=== PATIENT | female | born 1970 | race Caucasian/White ===

== ENCOUNTER 2021-09-23 14:34 | Outpatient (CLI) | payer BC, MEDICAID, SELFPAY ==
--- NOTE | 2021-09-23 14:52 | PFTS_ITS ---
Date of Study:09/23/21 Date of Dictation: 09/28/21 MECHANICS: Postbronchodilator forced vital capacity (FVC) is normalized 93% after bronchodilation. Pre-BD FVC 40% Postbronchodilator forced expiratory volume in one second (FEV1) is normalized 87% after bronchodilation. Pre-BD FEV1 26% FEV1/FVC is 74 improved significantly after bronchodilation. Pre-BD FEV1 FEC 53. There is tremendous response to bronchodilators FLOW VOLUME LOOP: Sloping of expiratory limb suggestive of airway obstruction significantly improved after bronchodilators . LUNG VOLUMES: Total lung capacity (TLC) is normal. Residual volume (RV) is normal DIFFUSING CAPACITY FOR CARBON MONOXIDE: Normal . INTERPRETATION: The prebronchodilator spirometry suggestive of very severe obstruction with FEV1 830 mL which has significantly improved to 2.71 L postbronchodilator. All the postbronchodilator values and flow volume loop show tremendous increase after bronchodilators. Lung volumes are normal. Gas transfer is normal. Constellation of findings consistent with reversible obstructive lung disease such as asthma. However clinical correlation recommended. [facility]
== END 2021-09-23 14:35 | disposition home or self-care (01) ==
LOC: RT 14:34
PROVIDERS: PCP Nurse Practitioner Family; Visit Provider Internal Medicine Pulmonary Disease
DX: U09.9 Post COVID-19 condition, unspecified (principal)
CPT/HCPCS: 94060; 94618; 94726; 94729; J7611

== ENCOUNTER 2021-10-05 14:44 | Emergency (ER) | payer BC, MEDICAID, SELFPAY ==
[2021-10-05 14:46] VITALS: BP 174/78; PULSE 136; RESP 26; TEMP 36.5; O2SAT 96; BMI 30.4
--- NOTE | 2021-10-05 15:48 | XR_ITS ---
WS: [id number] XR chest 1V portable [id number] REASON FOR EXAM: cp FINDINGS: Moderate tortuosity the thoracic aorta without aneurysmal dilatation. No significant cardiomegaly. Calcified granulomatous changes in both hemithoraces. No acute pulmonary parenchymal or pleural abnormality. Mild changes of degenerative spondylosis in the mid and lower thoracic spine. Degenerative change in the right acromioclavicular joint. XR/XR chest 1V portable [id number] IMPRESSION: No acute chest abnormality.
--- NOTE | 2021-10-05 15:49 | ECG_ITS ---
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 Measurements Intervals [place] Rate: 124 P: 50 DC: 151 QRS: 55 QRSD: 89 T: 53 QT: 290 QTc: 417 Interpretive Statements SINUS TACHYCARDIA No previous ECG available for comparison Electronically Signed On 10-05-2021 17:08:05 METAL CLEANER by Duy Hannah M.D. [id number]
--- NOTE | 2021-10-05 16:15 | W.ED.CHESTPA ---
Documented by User: MELISSA Menezes 10/06/21 07:06 HPI - Chest Pain General: Chief Complaint: Chest Pain Stated Complaint: SOB, CHEST PAINS Time Seen by Provider: 10/05/21 15:55 History of Present Illness: Patient is a 50-year-old female comes to the ED with palpitations and chest pain. Patient says she got up to walk to her vehicle and symptoms started. She felt palpitations and her heart was racing. She then felt some chest tightness and chest pain. She is scheduled to see a survey analyst in the next couple months and she just finished wearing her Holter monitor and sent it back in for evaluation. She says she had some episodes of palpitation over the last couple weeks. She never experienced palpitations and chest pain like this before. She endorsed feeling a little short of breath, nauseous and diaphoretic. Patient endorses having a history of anxiety but feels like this is different than past episodes. Here in the ED, chest pain is very mild right now and feels more like a tightness in her chest. Denies feeling any palpitations or shortness of breath currently. She got COVID-19 back in January and ever since then she has been having these palpitation episodes. Associated symptoms: Reports diaphoresis (during CP and palpitations episode.), dyspnea and palpitations; Deny abdominal pain, fever(s), nausea or vomiting Review of Systems Const: Reports: diaphoresis (during CP and palpitations episode.); Denies: fever(s), chills or fatigue Eyes: Denies: change in vision or eye discomfort ENMT: Denies: throat pain, odynophagia, nasal discharge or nasal congestion Card: Reports: chest pain and palpitations; Denies: edema, swelling of feet/ankles, dyspnea on exertion or orthopnea Resp: Reports: dyspnea; Denies: productive cough, non-productive cough or hemoptysis GI: Denies: abdominal pain, nausea, vomiting, diarrhea, constipation or hematochezia : Denies: flank pain, dysuria or hematuria Musc: Denies: neck pain, back pain or extremity swelling Skin/Breast: Denies: rash or new lesions Neuro: Denies: headache(s), numbness in extremities or weakness in extremities PFS ED PFSH: Medical History Hypertension Family History Father CAD (coronary artery disease) Cancer Hypertension Mother Cancer Lung disease Denies family history of Diabetes Dementia Chronic kidney disease (CKD) Suicide Family history of premature coronary artery disease Stroke Social History Smoking and tobacco status: never smoked Alcohol intake: never Lives independently: Yes Household members: none Housing: House Marital status: Unknown Number of children: 1 Current occupational status: employed Current occupation: [employer] Pets and animals: Yes Pets & animals: cat(s) Physical Exam Const: COMMON NORMALS: patient oriented x3 and alert GENERAL APPEARANCE: cooperative and comfortable HENMT: COMMON NORMALS: normocephalic HEAD & SCALP: normocephalic MOUTH: Normal oral and palatal mucosa present THROAT: posterior oropharynx normal and uvula midline Eye: COMMON NORMALS: Equal, round and reactive pupils present and conjunctivae normal CONJUNCTIVA: Yes conjunctivae normal PUPIL: Yes Equal, round and reactive pupils present Neck/C-Spine: COMMON NORMALS: supple GENERAL: Yes normal visual inspection Resp: COMMON NORMALS: normal respiratory effort, No retractions, No use of accessory muscles and clear to auscultation bilaterally AUSCULTATION: clear to auscultation bilaterally Cardio: COMMON NORMALS: regular rate, regular rhythm, S1 normal heart sound present, S2 normal heart sound present, No gallops present (Cardio), No clicks present (Cardio), No murmurs present (Cardio) and Peripheral pulses 2+ throughout RATE: regular rate RHYTHM: regular rhythm HEART SOUNDS: S1 normal heart sound present and S2 normal heart sound present PERIPHERAL PULSES: Peripheral pulses 2+ throughout GI: COMMON NORMALS: Normal to inspection, nondistended, normoactive bowel sounds present, Soft to palpation, non-tender and no masses PALPATION: Yes Soft to palpation : COMMON NORMALS: Yes no CVA tenderness BLADDER/KIDNEY EXAM: Yes no CVA tenderness Back/Pelvis: COMMON NORMALS: no CVA tenderness Extremity: COMMON NORMALS: normal to inspection Neuro: COMMON NORMALS: patient oriented x3 and moves all extremities SENSORIUM/ORIENTATION: Yes alert Skin: GENERAL SKIN EXAM: dry skin Course Vital Signs: Vital signs: Vital Signs Temperature 97.7 F 10/05/21 14:46 Pulse Rate 100 10/05/21 20:49 Respiratory Rate 18 10/05/21 20:49 Blood Pressure 164/107 10/05/21 17:50 Pulse Oximetry 98 10/05/21 20:49 MDM - Chest Pain Lab Data I reviewed the patient's lab results. : 10/05/21 16:14 10/05/21 19:18 Radiology Impressions Chest X-Ray 10/05/21 15:48 IMPRESSION: No acute chest abnormality. Laboratory Results WBC 11.5 10^3/uL (4.0-10.0) H 10/05/21 16:14 RBC 4.76 10^6/uL (4.1-5.3) 10/05/21 16:14 Hgb 15.2 g/dL (11.5-15.3) 10/05/21 16:14 Hct 44.3 % (37.0-47.0) 10/05/21 16:14 MCV 93.1 fl (81-99) 10/05/21 16:14 MCH 31.9 pg (28.0-34.0) 10/05/21 16:14 MCHC 34.3 g/dL (30.0-36.0) 10/05/21 16:14 RDW 12.9 % (12.1-15.1) 10/05/21 16:14 Plt Count 377 10^3/cmm (130-400) 10/05/21 16:14 MPV 9.3 fL (7.4-10.4) 10/05/21 16:14 Neut % (Auto) 72.6 % 10/05/21 16:14 Lymph % (Auto) 20.8 % 10/05/21 16:14 Bea[place] % (Auto) 5.3 % 10/05/21 16:14 Eos % (Auto) 0.3 % 10/05/21 16:14 Baso % (Auto) 0.7 % 10/05/21 16:14 Neut # (Auto) 8.32 10^3/uL (1.8-7.7) H 10/05/21 16:14 Lymph # (Auto) 2.4 10^3/uL (0.8-4.8) 10/05/21 16:14 [place] # (Auto) 0.6 10^3/uL (0.2-0.9) 10/05/21 16:14 Eos # (Auto) 0.0 10^3/uL (0.0-0.8) 10/05/21 16:14 Baso # (Auto) 0.1 10^3/uL (0.0-0.1) 10/05/21 16:14 Nucleated RBC % (auto) 0 % 10/05/21 16:14 Nucleated RBCs # 0.0 /100WBC 10/05/21 16:14 D-Dimer 0.52 ug/mIFEU (0-0.59) 10/05/21 17:15 Sodium 137 mmol/L (136-145) 10/05/21 19:18 Potassium 4.3 mmol/L (3.5-5.1) 10/05/21 19:18 Chloride 99 mmol/L (98-107) 10/05/21 19:18 Carbon Dioxide 21 mmol/L (22-29) L 10/05/21 19:18 Anion Gap 21.3 (5-19) H 10/05/21 19:18 BUN 13 mg/dL (6-20) 10/05/21 19:18 Creatinine 0.8 mg/dL (0.5-0.9) 10/05/21 19:18 GFR Calculation 75.6 mL/min (90-130) L 10/05/21 19:18 Glucose 95 mg/dL (65-115) 10/05/21 19:18 Calculated Osmolality 284 mOsm/kg (285-295) L 10/05/21 19:18 Calcium 10.0 mg/dL (8.5-10.5) 10/05/21 19:18 Total Bilirubin 0.4 mg/dL (0.15-1.2) 10/05/21 19:18 AST 28 U/L (0-32) 10/05/21 19:18 ALT 25 U/L (0-33) 10/05/21 19:18 Alkaline Phosphatase 56 IU/L (35-105) 10/05/21 19:18 Troponin T Baseline 17 ng/L (0-10) H 10/05/21 19:18 NT-Pro-B Natriuret Pep 38 pg/mL (0-125) 10/05/21 19:18 Total Protein 7.8 g/dL (6.6-8.7) 10/05/21 19:18 Albumin 4.7 g/dL (3.5-5.2) 10/05/21 19:18 Globulin 3.1 g/dL (1.3-4.6) 10/05/21 19:18 EKG Data EKG 1: EKG interpretation date: 10/05/21 Interpretation: Sinus tachycardia, 124 bpm, no ST segment elevation or depression seen. Computer generated interpretation: [facility] [place] [address] [place] [address] Electrocardiograph Report Draft Patient: Dipti Fernandes Unit #: [id number] : 1970 Age/Sex: 50 / F ADM Date: 10/05/21 Loc: ER Room/Bed: Attending Dr: Ordering Provider/Ordering MD: Dax Durant Date of Service: 10/05/21 Procedure(s): ECG 12 lead EKG Accession Number(s): [id number] Report Number: [id number] ? [facility] ? Test Date:? ? 2021-10-05 Pat Name: ? ? Dipti Fernandes? Department: ? Patient ID: ? [id number] ? Room: ? Gender: ? ? ? Female ? Bench Scientist: ? :? 1970 ? Requested By: Dax Durant Order Number: [id number]? Reading MD: ? Measurements Intervals? [place]? Rate: ? 124? P:? 50 [place]: ? 151? QRS:? 55 QRSD: ? 89 ? T:? 53 QT: ? 290? QTc:? 417? Interpretive Statements SINUS TACHYCARDIA ABNORMAL RHYTHM ECG No previous ECG available for comparison [id number] Dictated By: INTERFACE,USER Signed By: Signed Date/Levar DD/ 1454 Discharge Plan Discharge Patient Disposition: Home Clinical Impression: Exertional dyspnea, Post covid-19 condition, unspecified Condition: Stable Prescriptions: No Action metoprolol succinate 25 mg tablet extended release 24 hr PO 0RF venlafaxine 150 mg tablet extended release 24hr 150 mg PO DAILY 0RF prednisolone 5 mg tablet 5 mg PO QAM 0RF prazosin 2 mg capsule 2 mg PO BID 0RF albuterol sulfate 90 mcg/actuation HFA aerosol inhaler 2 puff inhalation Q4H PRN0RF albuterol sulfate 2.5 mg /3 mL (0.083 %) solution for nebulization 2.5 mg inhalation TID 0RF budesonide-formoterol [Symbicort] 160-4.5 mcg/actuation HFA aerosol inhaler 2 puff inhalation BID Qty: 10.2 3RF lisinopril 5 mg tablet 10 mg PO DAILY 0RF Discharge Orders: Discharge ED (Routine); Ordered 10/05/21 Ordered By: Nena Cisneros Referrals: Saritha Denis [Primary Care Provider] - Sign Out Sign Out Data: Patient Sign Out occurred on 10/05/21 at 17:11. Patient's care was discussed, and care was transferred from to MELISSA Pfeiffer. Coding Level of Care Code ED Clinical Education Coordinator for Chg Fwd Exam Comprehensive Documented by User: MELISSA Pfeiffer 10/05/21 21:25 HPI - Chest Pain General: Chief Complaint: Chest Pain Stated Complaint: SOB, CHEST PAINS Time Seen by Provider: 10/05/21 15:55 PFSH ED PFSH: Medical History Hypertension Family History Father CAD (coronary artery disease) Cancer Hypertension Mother Cancer Lung disease Denies family history of Diabetes Dementia Chronic kidney disease (CKD) Suicide Family history of premature coronary artery disease Stroke Social History Smoking and tobacco status: never smoked Alcohol intake: never Lives independently: Yes Household members: none Housing: House Marital status: Unknown Number of children: 1 Current occupational status: employed Current occupation: [employer] Pets and animals: Yes Pets & animals: cat(s) Course Vital Signs: Vital signs: Vital Signs Temperature 97.7 F 10/05/21 14:46 Pulse Rate 100 10/05/21 20:49 Respiratory Rate 18 10/05/21 20:49 Blood Pressure 164/107 10/05/21 17:50 Pulse Oximetry 98 10/05/21 20:49 MDM - Chest Pain Medical Decision Making Care assumed from Dax Durant PA-C. Patient is a very nice 50-year-old female here for complaints of chest pains, tachycardia, and severe exertional dyspnea. Patient states symptoms of been present since January following a COVID infection. Patient has followed up with pulmonology and was recently had PFT studies performed. She is recently finished a Holter monitor course but does not know results of this. She has follow-up with survey analyst Dr. Mireles in approximately 2 weeks. Patient was tachycardic upon arrival but this is resolved during my examination. She does not currently complain of chest pain. Work-up ordered from previous provider shows labs are fairly unremarkable. Her CXR is normal. She has a normal D-dimer. She has a normal BNP. Her initial baseline troponin unfortunately was not ran by lab and when RN collected her 2-hour troponin they then ran this as her baseline. It is mildly elevated at 17. Patient states she is tired of waiting and does not want to stay for repeat 2-hour troponin. Her baseline and repeat EKGs show no ischemic changes. Again she does not have any current chest pain. Most of her symptoms seem to be chronic and she has appropriate outpatient follow-up. Strict return to ED precautions verbally given to patient and her who agree with current plan. Lab Data : 10/05/21 16:14 10/05/21 19:18 Radiology Impressions Chest X-Ray 10/05/21 15:48 IMPRESSION: No acute chest abnormality. Laboratory Results WBC 11.5 10^3/uL (4.0-10.0) H 10/05/21 16:14 RBC 4.76 10^6/uL (4.1-5.3) 10/05/21 16:14 Hgb 15.2 g/dL (11.5-15.3) 10/05/21 16:14 Hct 44.3 % (37.0-47.0) 10/05/21 16:14 MCV 93.1 fl (81-99) 10/05/21 16:14 MCH 31.9 pg (28.0-34.0) 10/05/21 16:14 MCHC 34.3 g/dL (30.0-36.0) 10/05/21 16:14 RDW 12.9 % (12.1-15.1) 10/05/21 16:14 Plt Count 377 10^3/cmm (130-400) 10/05/21 16:14 MPV 9.3 fL (7.4-10.4) 10/05/21 16:14 Neut % (Auto) 72.6 % 10/05/21 16:14 Lymph % (Auto) 20.8 % 10/05/21 16:14 Bea[place] % (Auto) 5.3 % 10/05/21 16:14 Eos % (Auto) 0.3 % 10/05/21 16:14 Baso % (Auto) 0.7 % 10/05/21 16:14 Neut # (Auto) 8.32 10^3/uL (1.8-7.7) H 10/05/21 16:14 Lymph # (Auto) 2.4 10^3/uL (0.8-4.8) 10/05/21 16:14 [place] # (Auto) 0.6 10^3/uL (0.2-0.9) 10/05/21 16:14 Eos # (Auto) 0.0 10^3/uL (0.0-0.8) 10/05/21 16:14 Baso # (Auto) 0.1 10^3/uL (0.0-0.1) 10/05/21 16:14 Nucleated RBC % (auto) 0 % 10/05/21 16:14 Nucleated RBCs # 0.0 /100WBC 10/05/21 16:14 D-Dimer 0.52 ug/mIFEU (0-0.59) 10/05/21 17:15 Sodium 137 mmol/L (136-145) 10/05/21 19:18 Potassium 4.3 mmol/L (3.5-5.1) 10/05/21 19:18 Chloride 99 mmol/L (98-107) 10/05/21 19:18 Carbon Dioxide 21 mmol/L (22-29) L 10/05/21 19:18 Anion Gap 21.3 (5-19) H 10/05/21 19:18 BUN 13 mg/dL (6-20) 10/05/21 19:18 Creatinine 0.8 mg/dL (0.5-0.9) 10/05/21 19:18 GFR Calculation 75.6 mL/min (90-130) L 10/05/21 19:18 Glucose 95 mg/dL (65-115) 10/05/21 19:18 Calculated Osmolality 284 mOsm/kg (285-295) L 10/05/21 19:18 Calcium 10.0 mg/dL (8.5-10.5) 10/05/21 19:18 Total Bilirubin 0.4 mg/dL (0.15-1.2) 10/05/21 19:18 AST 28 U/L (0-32) 10/05/21 19:18 ALT 25 U/L (0-33) 10/05/21 19:18 Alkaline Phosphatase 56 IU/L (35-105) 10/05/21 19:18 Troponin T Baseline 17 ng/L (0-10) H 10/05/21 19:18 NT-Pro-B Natriuret Pep 38 pg/mL (0-125) 10/05/21 19:18 Total Protein 7.8 g/dL (6.6-8.7) 10/05/21 19:18 Albumin 4.7 g/dL (3.5-5.2) 10/05/21 19:18 Globulin 3.1 g/dL (1.3-4.6) 10/05/21 19:18 Discharge Plan Discharge Patient Disposition: Home Clinical Impression: Exertional dyspnea, Post covid-19 condition, unspecified Condition: Stable Prescriptions: No Action metoprolol succinate 25 mg tablet extended release 24 hr PO 0RF venlafaxine 150 mg tablet extended release 24hr 150 mg PO DAILY 0RF prednisolone 5 mg tablet 5 mg PO QAM 0RF prazosin 2 mg capsule 2 mg PO BID 0RF albuterol sulfate 90 mcg/actuation HFA aerosol inhaler 2 puff inhalation Q4H PRN0RF albuterol sulfate 2.5 mg /3 mL (0.083 %) solution for nebulization 2.5 mg inhalation TID 0RF budesonide-formoterol [Symbicort] 160-4.5 mcg/actuation HFA aerosol inhaler 2 puff inhalation BID Qty: 10.2 3RF lisinopril 5 mg tablet 10 mg PO DAILY 0RF Discharge Orders: Discharge ED (Routine); Ordered 10/05/21 Ordered By: Nena Cisneros Referrals: Saritha Denis [Primary Care Provider] - Sign Out Sign Out Data: Patient Sign Out occurred on 10/05/21 at 17:11. Patient's care was discussed, and care was transferred from to MELISSA Pfeiffer. Coding Level of Care Code ED Clinical Education Coordinator for Chg Fwd Exam Comprehensive
[2021-10-05 16:19] LABS: Basophils # 0.1 10^3/uL (0.0-0.1); Basophils % 0.7 %; Eosinophils % 0.3 %; Hematocrit 44.3 % (37.0-47.0); Hemoglobin 15.2 g/dL (11.5-15.3); Lymphocytes # 2.4 10^3/uL (0.8-4.8); Lymphocytes % 20.8 %; Mean Corpuscular HGB Conc 34.3 g/dL (30.0-36.0); Mean Corpuscular Hemoglobin 31.9 pg (28.0-34.0); Mean Corpuscular Volume 93.1 fl (81-99); Mean Platelet Volume 9.3 fL (7.4-10.4); Monocytes # 0.6 10^3/uL (0.2-0.9); Monocytes % 5.3 %; Neutrophils # 8.32 10^3/uL (1.8-7.7); Neutrophils % 72.6 %; Nucleated Red Blood Cells % 0 %; Platelet Count 377 10^3/cmm (130-400); Red Blood Count 4.76 10^6/uL (4.1-5.3); Red Cell Distribution Width 12.9 % (12.1-15.1); White Blood Count 11.5 10^3/uL (4.0-10.0)
[2021-10-05 17:35] LABS: D Dimer 0.52 ug/mIFEU (0-0.59)
[2021-10-05 17:44] LABS: Troponin(5th) Baseline 17 ng/L (0-10)
--- NOTE | 2021-10-05 17:49 | ECG_ITS ---
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 Measurements Intervals [place] Rate: 93 P: 46 DE: 147 QRS: 53 QRSD: 106 T: 49 QT: 338 QTc: 420 Interpretive Statements SINUS RHYTHM Compared to ECG 10/05/2021 14:54:15 Sinus tachycardia no longer present Electronically Signed On 10-05-2021 20:55:17 NATIONAL SALES TRAINER by Duy Hannah M.D. [email or web address] hardin [id number]
[2021-10-05 17:50] VITALS: BP 164/107; PULSE 104; RESP 16; O2SAT 99
[2021-10-05] MEDS: aspirin 81 mg Chew Tablet 324 MG PO (18:54)
[2021-10-05] MEDS: acetaminophen 500 mg Tablet 1000 MG PO (19:17)
[2021-10-05 20:27] LABS: Alanine Aminotransferase 25 U/L (0-33); Albumin Level 4.7 g/dL (3.5-5.2); Alkaline Phosphatase 56 IU/L (35-105); Anion Gap 21.3 (5-19); Aspartate Amino Transferase 28 U/L (0-32); Blood Urea Nitrogen 13 mg/dL (6-20); Carbon Dioxide 21 mmol/L (22-29); Chloride 99 mmol/L (98-107); Globulin 3.1 g/dL (1.3-4.6); Glomerular Filtration Rate 75.6 mL/min (90-130); Glucose 95 mg/dL (65-115); NT Pro B Type Natriuretic Pept 38 pg/mL (0-125); Osmolality Calculated 284 mOsm/kg (285-295); Potassium 4.3 mmol/L (3.5-5.1); Sodium 137 mmol/L (136-145); Total Bilirubin 0.4 mg/dL (0.15-1.2); Total Protein 7.8 g/dL (6.6-8.7)
[2021-10-05 20:48] VITALS: PULSE 100; RESP 18; O2SAT 98
[2021-10-05 20:49] VITALS: PULSE 100; RESP 18; O2SAT 98
== END 2021-10-05 20:51 | disposition home or self-care (01) ==
PROVIDERS: Physician Assistant; Emergency Provider Physician Assistant; PCP Nurse Practitioner Family
DX: R06.09 Other forms of dyspnea (principal); U09.9 Post COVID-19 condition, unspecified; I10 Essential (primary) hypertension
CPT/HCPCS: 71045; 80053; 83880; 84484; 85025; 85378; 93005; 99283

== ENCOUNTER 2021-11-02 20:00 | Outpatient (CLI) | payer BC, MEDICAID, SELFPAY | END 2021-11-02 20:01 | disposition home or self-care (01) | LOC: SLEEP 11-03 07:45 | PROVIDERS: PCP Nurse Practitioner Family; Visit Provider Internal Medicine Pulmonary Disease | DX: G47.10 Hypersomnia, unspecified (principal); G47.33 Obstructive sleep apnea (adult) (pediatric) | CPT/HCPCS: 95810 ==

== ENCOUNTER → 2021-11-19 10:50 | Outpatient (BNVA) | payer BC, MEDICAID, SELFPAY | PROVIDERS: PCP Nurse Practitioner Family; Visit Provider Internal Medicine Pulmonary Disease | DX: R22.43 Localized swelling, mass and lump, lower limb, bilateral (principal); R06.00 Dyspnea, unspecified; Z77.120 Contact with and (suspected) exposure to mold (toxic); U09.9 Post COVID-19 condition, unspecified; R06.02 Shortness of breath; G47.33 Obstructive sleep apnea (adult) (pediatric); R00.0 Tachycardia, unspecified | CPT/HCPCS: 36415; 82785; 83880; 85025; 85651; 86003; 86331; 86606; 86609 ==

== ENCOUNTER 2022-03-14 23:53 | Emergency (ER) | payer MEDICAID, SELFPAY ==
[2022-03-14 23:54] VITALS: BMI 25.8
[2022-03-14 23:57] VITALS: BP 160/105; PULSE 99; RESP 22; TEMP 39.5; O2SAT 97
--- NOTE | 2022-03-15 00:10 | XRR_ITS ---
PROCEDURE INFORMATION: Exam: XR Chest Exam date and time: 03/15/2022 12:19 AM Age: 51 years old Clinical indication: Fever and shortness of breath; Patient HX: C/O SOB and fever. ; Additional info: Fever, dyspnea TECHNIQUE: Imaging protocol: Radiologic exam of the chest. Views: 1 view. COMPARISON: 1. CR XR chest 1V portable [id number] 2021-10-05 16:[address] chest wo/w con [id number] 2021-08-05 15:21 3. DX Chest 2 views* [id number] 2021-07-07 09:23 4. CR XR chest 1V [id number] 2021-02-12 20:02 FINDINGS: Lungs: Left lung base atelectasis or trace infiltrate. Pleural spaces: Unremarkable. No pleural effusion. No pneumothorax. Heart/Mediastinum: Unremarkable. No cardiomegaly. Bones/joints: Unremarkable. XR/XR chest 1V portable [id number] IMPRESSION: Left lung base atelectasis or trace infiltrate.
--- NOTE | 2022-03-15 00:15 | ED_ITS ---
HPI - SOB/Dyspnea General: Chief Complaint: Shortness of Breath/Dyspnea Stated Complaint: resp distress Time Seen by Provider: 03/15/22 00:10 History of Present Illness: HPI Narrative: 51-year-old female comes in today for complaints of shortness of breath and not feeling well since last night. Patient reports body aches. Patient has a history of dyspnea since - last February. Patient appears mildly unwell but not toxic. Patient appears in no pain. Patient's respirations are even and able to speak in full sentences. Patient has a history of depression since the loss of her daughter and grandchild. Patient came in by EMS and has a temperature of 103. Associated symptoms: Reports nausea; Deny chest pain Review of Systems General: Reports: 10 or more systems reviewed and unremarkable except in HPI and below Card: Denies: chest pain Resp: Reports: dyspnea GI: Reports: nausea : Denies: difficulty voiding Musc: Reports: other (Body aches) PFS ED PFSH: Medical History Hypertension Surgical History H/O knee surgery Family History Father CAD (coronary artery disease) Cancer Hypertension Mother Cancer Lung disease Social History Smoking and tobacco status: never smoked Alcohol intake: never Lives independently: Yes Household members: none Housing: House Marital status: Unknown Number of children: 1 Current occupational status: employed Current occupation: [employer] Pets and animals: Yes Pets & animals: cat(s) Physical Exam Const: COMMON NORMALS: alert HENMT: COMMON NORMALS: normocephalic HEAD & SCALP: normocephalic Neck/C-Spine: COMMON NORMALS: full ROM Chest: COMMONS NORMALS: normal inspection of the chest and normal palpation of the breasts BREAST/AXILLA PALPATION: Yes normal palpation of the breasts Resp: COMMON NORMALS: normal respiratory effort AUSCULTATION: diminished lung sounds bilateral in the lower lung lopez Cardio: COMMON NORMALS: regular rate RATE: regular rate Extremity: COMMON NORMALS: normal to inspection Neuro: SENSORIUM/ORIENTATION: Yes alert Skin: COMMON NORMALS: no rashes or lesions noted GENERAL SKIN EXAM: no rashes or lesions noted Course Vital Signs: Vital signs: Vital Signs Temperature 103.1 F H 03/14/22 23:57 Pulse Rate 99 03/14/22 23:57 Respiratory Rate 22 H 03/14/22 23:57 Blood Pressure 160/105 03/14/22 23:57 Pulse Oximetry 97 03/14/22 23:57 MDM - SOB/Dyspnea Medical Decision Making 51-year-old female comes in today with increased shortness of breath and fever for the last 2 days. Patient does have a history of long COVID and chronic dyspnea. On exam patient had a temperature of 103. Respirations were even with decreased lung sounds in the bases. No edema was noted. Skin was warm and dry. Oral mucosa was moist. Differential diagnosis includes pneumonia, dehydration, sepsis, viral syndrome. Flu and COVID test were negative. CBC showed a white count of 4.1. CMP had a sodium of 132, and some mild increase and liver enzymes. Patient was ordered a tick panel for further evaluation. Chest x-ray was read with some mild infiltrate in the left lower lung lopez. We will go ahead and treat patient with doxycycline for community-acquired pneumonia. Suspicion of it being mainly being a viral syndrome. Recommend follow-up with primary care return to ER for worsening symptoms. Patient reported understanding and agreed to plan. Lab Data : 03/15/22 00:25 03/15/22 00:25 Labs/Radiology: Radiology Impressions Chest X-Ray 03/15/22 00:10 IMPRESSION: Left lung base atelectasis or trace infiltrate. Laboratory Results WBC 4.1 10^3/uL (4.0-10.0) 03/15/22 00:25 RBC 3.82 10^6/uL (4.1-5.3) L 03/15/22 00:25 Hgb 12.3 g/dL (11.5-15.3) 03/15/22 00:25 Hct 35.6 % (37.0-47.0) L 03/15/22 00:25 MCV 93.2 fl (81-99) 03/15/22 00:25 MCH 32.2 pg (28.0-34.0) 03/15/22 00:25 MCHC 34.6 g/dL (30.0-36.0) 03/15/22 00:25 RDW 12.3 % (12.1-15.1) 03/15/22 00:25 Plt Count 190 10^3/cmm (130-400) 03/15/22 00:25 MPV 9.4 fL (7.4-10.4) 03/15/22 00:25 Neut % (Auto) 82.3 % 03/15/22 00:25 Lymph % (Auto) 11.4 % 03/15/22 00:25 [place] % (Auto) 5.4 % 03/15/22 00:25 Eos % (Auto) 0.0 % 03/15/22 00:25 Baso % (Auto) 0.2 % 03/15/22 00:25 Neut # (Auto) 3.33 10^3/uL (1.8-7.7) 03/15/22 00:25 Lymph # (Auto) 0.5 10^3/uL (0.8-4.8) L 03/15/22 00:25 [place] # (Auto) 0.2 10^3/uL (0.2-0.9) 03/15/22 00:25 Eos # (Auto) 0.0 10^3/uL (0.0-0.8) 03/15/22 00:25 Baso # (Auto) 0.0 10^3/uL (0.0-0.1) 03/15/22 00:25 Nucleated RBC % (auto) 0 % 03/15/22 00:25 Nucleated RBCs # 0.0 /100WBC 03/15/22 00:25 Sodium 132 mmol/L (136-145) L 03/15/22 00:25 Potassium 4.0 mmol/L (3.5-5.1) 03/15/22 00:25 Chloride 95 mmol/L (98-107) L 03/15/22 00:25 Carbon Dioxide 22 mmol/L (22-29) 03/15/22 00:25 Anion Gap 19.0 (5-19) 03/15/22 00:25 BUN 10 mg/dL (6-20) 03/15/22 00:25 Creatinine 0.9 mg/dL (0.5-0.9) 03/15/22 00:25 GFR Calculation 65.8 mL/min (90-130) L 03/15/22 00:25 Glucose 124 mg/dL (65-115) H 03/15/22 00:25 Calculated Osmolality 274 mOsm/kg (285-295) L 03/15/22 00:25 Lactic Acid 1.2 mmol/L (0.5-2.2) 03/15/22 00:25 Calcium 9.2 mg/dL (8.5-10.5) 03/15/22 00:25 Total Bilirubin 0.4 mg/dL (0.15-1.2) 03/15/22 00:25 AST 72 U/L (0-32) H 03/15/22 00:25 ALT 53 U/L (0-33) H 03/15/22 00:25 Alkaline Phosphatase 69 IU/L (35-105) 03/15/22 00:25 Total Protein 7.0 g/dL (6.6-8.7) 03/15/22 00:25 Albumin 3.9 g/dL (3.5-5.2) 03/15/22 00:25 Globulin 3.1 g/dL (1.3-4.6) 03/15/22 00:25 Urine Color Yellow (Yellow) 03/15/22 01:08 Urine Appearance Clear (CLEAR) 03/15/22 01:08 Urine pH 8 (5-7) H 03/15/22 01:08 Ur Specific [place] 1.010 (1.005-1.030) 03/15/22 01:08 Urine Protein Neg (Negative) 03/15/22 01:08 Urine Glucose (UA) Norm (Normal) 03/15/22 01:08 Urine Ketones 1+ (Negative) H 03/15/22 01:08 Urine Blood Neg (Negative) 03/15/22 01:08 Urine Nitrate Negative (Negative) 03/15/22 01:08 Urine Bilirubin Neg (Negative) 03/15/22 01:08 Prot Sulfosalicylic Acd Negative (Negative) 03/15/22 01:08 Urine Urobilinogen Norm mg/dL (Negative) 03/15/22 01:08 Ur Leukocyte Esterase Negative (Negative) 03/15/22 01:08 Influenza Type A Ag Negative (Negative) 03/15/22 00:25 Influenza Type B Ag Negative (Negative) 03/15/22 00:25 SARS-CoV-2 Ag (Rapid) Negative (Negative) 03/15/22 00:25 Discharge Plan Discharge Patient Disposition: Home Clinical Impression: Community acquired pneumonia Qualifiers: Laterality: left Lung location: lower lobe of lung Qualified Code(s): J18.9 - Pneumonia, unspecified organism Condition: Stable Prescriptions: New doxycycline monohydrate 100 mg capsule 100 mg PO BID 10 Days Qty: 20 0RF No Action aspirin 325 mg tablet 325 mg PO DAILY 0RF vitamin B complex [B Complex-Vitamin B12] Tablet 1 tab PO DAILY 0RF cholecalciferol (vitamin D3) 25 mcg (1,000 unit) capsule 25 mcg PO DAILY 0RF venlafaxine 150 mg tablet extended release 24hr 150 mg PO DAILY 0RF albuterol sulfate 90 mcg/actuation HFA aerosol inhaler 2 puff inhalation Q4H PRN0RF albuterol sulfate 2.5 mg /3 mL (0.083 %) solution for nebulization 2.5 mg inhalation TID 0RF budesonide-formoterol [Symbicort] 160-4.5 mcg/actuation HFA aerosol inhaler 2 puff inhalation BID Qty: 10.2 3RF lisinopril 5 mg tablet 20 mg PO DAILY 0RF prazosin 2 mg capsule 4 mg PO .HS 0RF metoprolol succinate 100 mg tablet extended release 24 hr 150 mg PO DIRECTED Qty: 90 3RF Rx Instructions: 100mg in AM and 50mg in PM Discharge Orders: Discharge ED (Routine); Ordered 03/15/22 Ordered By: Maynor Boggs Referrals: Saritha Denis [Primary Care Provider] - Discharge Diet: Usual diet Discharge Activity: Increase activity as tolerated Patient Instructions: Pneumonia (ED) Activity Restrictions/Additional Instructions: Home and rest. Drink plenty of fluids. Use acetaminophen and ibuprofen for pain and fever. It is important to drink plenty of fluids and stay well- hydrated. Continue with your routine inhalers and nebulizer as needed. Return to ER for new concerns or worsening symptoms. Coding Level of Care Code ED Cleaner Housekeeping for Dulce Fwd Exam Comprehensive
[2022-03-15 00:37] LABS: Basophils % 0.2 %; Hematocrit 35.6 % (37.0-47.0); Hemoglobin 12.3 g/dL (11.5-15.3); Lymphocytes # 0.5 10^3/uL (0.8-4.8); Lymphocytes % 11.4 %; Mean Corpuscular HGB Conc 34.6 g/dL (30.0-36.0); Mean Corpuscular Hemoglobin 32.2 pg (28.0-34.0); Mean Corpuscular Volume 93.2 fl (81-99); Mean Platelet Volume 9.4 fL (7.4-10.4); Monocytes # 0.2 10^3/uL (0.2-0.9); Monocytes % 5.4 %; Neutrophils # 3.33 10^3/uL (1.8-7.7); Neutrophils % 82.3 %; Nucleated Red Blood Cells % 0 %; Platelet Count 190 10^3/cmm (130-400); Red Blood Count 3.82 10^6/uL (4.1-5.3); Red Cell Distribution Width 12.3 % (12.1-15.1); White Blood Count 4.1 10^3/uL (4.0-10.0)
[2022-03-15] MEDS: acetaminophen 500 mg Tablet 1000 MG PO (00:44)
[2022-03-15] MEDS: sodium chloride 0.9% 1,000 ML 999 ML IV (00:45)
[2022-03-15 00:54] LABS: Alanine Aminotransferase 53 U/L (0-33); Albumin Level 3.9 g/dL (3.5-5.2); Alkaline Phosphatase 69 IU/L (35-105); Aspartate Amino Transferase 72 U/L (0-32); Blood Urea Nitrogen 10 mg/dL (6-20); Calcium 9.2 mg/dL (8.5-10.5); Carbon Dioxide 22 mmol/L (22-29); Chloride 95 mmol/L (98-107); Globulin 3.1 g/dL (1.3-4.6); Glomerular Filtration Rate 65.8 mL/min (90-130); Glucose 124 mg/dL (65-115); Osmolality Calculated 274 mOsm/kg (285-295); Sodium 132 mmol/L (136-145); Total Bilirubin 0.4 mg/dL (0.15-1.2)
[2022-03-15 00:55] LABS: Lactic Sepsis W/Reflex 1.2 mmol/L (0.5-2.2)
[2022-03-15 00:58] LABS: Influenza A by IFA Negative (Negative); Influenza B by IFA Negative (Negative); SARS Covid-2 Antigen Negative (Negative)
[2022-03-15 01:19] LABS: Add Urine Microscopic? NO; Charge for UA Resulting for Rev
[2022-03-15 01:26] LABS: Bilirubin Urine Neg (Negative); Blood Urine Neg (Negative); Glucose Urine UA Norm (Normal); Ketones Urine 1+ (Negative); Leukocyte Esterase Urine Negative (Negative); Nitrate Urine Negative (Negative); Protein Urine Neg (Negative); Sulfosalicylic Acid Urine Negative (Negative); Urine Appearance Clear (CLEAR); Urine Color Yellow (Yellow); Urobilinogen Urine Norm (Negative); pH Urine 8 (5-7)
[2022-03-15] MEDS: doxycycline 100 mg Tablet PO (01:44)
[2022-03-15 01:46] VITALS: TEMP 38.5
[2022-03-15 02:46] VITALS: BP 140/95; PULSE 82; RESP 16; TEMP 37.2; O2SAT 97
[2022-03-16 15:08] LABS: Lyme AB Screen <0.90 index
[2022-03-18 21:42] LABS: E. Chaffeensis AB IGG <1:64; E. Chaffeensis AB IGM <1:20
[2022-03-19 17:58] LABS: RMSF IGG NOT DETECTED; RMSF IGM NOT DETECTED
== END 2022-03-15 02:47 | disposition home or self-care (01) ==
PROVIDERS: Emergency Provider Nurse Practitioner Family; PCP Nurse Practitioner Family
DX: J18.9 Pneumonia, unspecified organism (principal); Z79.82 Long term (current) use of aspirin; I10 Essential (primary) hypertension; Z20.822 Contact with and (suspected) exposure to COVID-19
CPT/HCPCS: 36415; 71045; 80053; 81003; 83605; 85025; 86618; 86666; 86757; 87040; 87426; 87804; 99284; J7030

== ENCOUNTER → 2022-07-19 13:36 | Outpatient (BNVA) | payer MEDICAID, SELFPAY | PROVIDERS: PCP Nurse Practitioner Family; Referring Provider Nurse Practitioner Family; Visit Provider Specialist | DX: U09.9 Post COVID-19 condition, unspecified (principal); F32.A Depression, unspecified; F41.9 Anxiety disorder, unspecified; R41.89 Other symptoms and signs involving cognitive functions and awareness; J44.9 Chronic obstructive pulmonary disease, unspecified | CPT/HCPCS: 96116; 99205 ==

== ENCOUNTER → 2022-08-03 12:50 | Outpatient (BNVA) | payer MEDICAID, SELFPAY | PROVIDERS: PCP Nurse Practitioner Family; Referring Provider Specialist; Visit Provider Specialist | DX: G31.84 Mild cognitive impairment of uncertain or unknown etiology (principal); R56.9 Unspecified convulsions | CPT/HCPCS: 95812; 95816 ==

== ENCOUNTER 2022-09-26 11:30 | Outpatient (CLI) | payer MEDICAID, SELFPAY ==
--- NOTE | 2022-09-26 11:45 | MR_ITS ---
WS: [id number] MRI HEAD WITH CONTRAST TECHNIQUE: Sagittal T1, T2 axial, T2 axial FLAIR, axial susceptibility weighted imaging, axial diffus ion weighted images, and coronal T2 images were obtained. Pre and post-T1 axial and post T1 coronal i mages. ADC and FSPGR images. CLINICAL INFORMATION: R41.3 - Other amnesia COMPARISON: None. FINDINGS: No evidence of restricted diffusion to suggest acute ischemia. Ventricular system and basal cisterns are patent. Mild supratentorial white matter changes. No significant parenchymal volume loss. Normal posterior fossa. Normal vascular flow voids at the skull base. No extra-axial fluid collections. No e vidence of mass or mass effect. Mild mucosal thickening ethmoid air cells. No hemosiderin on the susc eptibly weighted images. Normal optic chiasm and pituitary infundibulum. Temporal lobes and hippocampal formations are normal in appearance. No abnormal gadolinium enhancement. Normal visualized dural venous sinuses. Normal cavernous sinuses and Meckel's cave. MR/MR head wo/w con [id number] IMPRESSION: 1. No evidence of restricted diffusion to suggest acute ischemia. 2. Minimal supratentorial white matter changes nonspecific in a patient this a ge but can be seen with hypertension, diabetes, collagen vascular disease, and migraine headaches. No significant parenchymal volume loss. 3. No hemosiderin on susceptibly weighted images. 4. No abnormal intracranial enhancement. 5. Temporal lobes and hippocampal formations are normal in appearance. 6. No other suspicious findings.
[2022-09-26] MEDS: gadobenate dimeglumine 20 mL vial IV (12:19)
== END 2022-09-26 11:31 | disposition home or self-care (01) ==
LOC: RAD 11:30
PROVIDERS: PCP Nurse Practitioner Family; Visit Provider Specialist
DX: R41.3 Other amnesia (principal)
CPT/HCPCS: 70553; A9577

== ENCOUNTER → 2023-02-21 07:39 | Outpatient (BNVA) | payer MEDICAID, SELFPAY | PROVIDERS: PCP Nurse Practitioner Family; Visit Provider Specialist | DX: G31.84 Mild cognitive impairment of uncertain or unknown etiology (principal); U09.9 Post COVID-19 condition, unspecified; F41.9 Anxiety disorder, unspecified; F32.A Depression, unspecified; G43.711 Chronic migraine without aura, intractable, with status migrainosus | CPT/HCPCS: 99214 ==

== ENCOUNTER → 2023-05-22 12:42 | Outpatient (BNVA) | payer MEDICAID, SELFPAY | PROVIDERS: PCP Nurse Practitioner Family; Visit Provider Specialist | DX: R29.90 Unspecified symptoms and signs involving the nervous system (principal); G31.84 Mild cognitive impairment of uncertain or unknown etiology; U09.9 Post COVID-19 condition, unspecified; F41.9 Anxiety disorder, unspecified; G43.711 Chronic migraine without aura, intractable, with status migrainosus; M54.81 Occipital neuralgia; F32.A Depression, unspecified; M79.7 Fibromyalgia | CPT/HCPCS: 99214; J1030; J3490 ==